=== PATIENT | female | born 1995 | race Caucasian/White ===

== ENCOUNTER 2024-11-23 14:53 | Emergency (ER) | payer BC, SELFPAY ==
[2024-11-23 14:57] VITALS: BP 136/94
[2024-11-23 15:27] VITALS: BMI 22.3
[2024-11-23 15:28] VITALS: BP 121/76
[2024-11-23 15:42] LABS: Hematocrit 41.4 % (37.0-47.0); Hemoglobin 14.4 g/dL (12.0-16.0); Mean Corp Hgb Conc. 34.8 g/dL (33.0-37.0); Mean Corpuscular Hgb 29.8 pg (27.0-31.0); Mean Corpuscular Volume 85.5 fL (81.0-99.0); Mean Platelet Volume 8.8 fL (7.4-10.4); Platelet Count 267 10^3/uL (130-400); Red Blood Cell Count 4.84 10^6/uL (4.20-5.40); White Blood Cell Count 6.2 10^3/uL (4.8-10.8)
[2024-11-23] MEDS: NSS 1000 IV (15:44)
--- NOTE | 2024-11-23 15:46 | ED.GENMED ---
History of Present Illness
General
Chief Complaint: Crisis Evaluation
Source: patient
Exam Limitations: none
Time Seen by Provider: 11/23/24 15:04
Nursing documentation reviewed up to this point in time: agreed with
History of Present Illness
History of Present Illness:
Patient with history of depression, presents to ED for medical clearance for potential inpatient psychiatric treatment, secondary to worsening depression. Patient states she longer wants to feel the way she is feeling. Of note, patient reports
decreased appetite and intermittent episode of diarrhea, nonbloody, over the past 1 week. Denies abdominal pain. Denies vomiting. Denies fever or chills. Denies coughing. Denies dizziness or weakness.
Review of Systems
Review of Systems
Allergies reviewed?: Yes
All Other Systems: ROS reviewed and negative except as documented in HPI and ROS
Constitutional: Reports no symptoms
Respiratory: Reports no symptoms; Denies cough or trouble breathing
Cardiac: Reports no symptoms
ABD/GI: Reports diarrhea; Denies abdominal pain, nausea or vomiting
Musculoskeletal: Reports no symptoms
Skin: Reports no symptoms
Neurological: Reports no symptoms; Denies dizzy or weakness
Psychiatric: Reports depression
Phy Exam
Physical Exam
Physical Exam:
Physical Exam
General: no apparent distress, not acutely ill. afebrile
Head: nc/at. eomi
Neck: supple. normal range of motion.
Heart: s1/s2 regular rate and rhythm
Lungs: no acute respiratory distress. clear bilaterally
Abdomen: normal bowel sounds. not tender.
Neuro: alert and oriented x 3. no focal neurological deficits
Skin: no rash
Psychiatric: well kept. interactive and cooperative
Extremities: no edema. no calf tenderness.
Course
Orders/Labs/Results
Orders:
Orders
11/23/24 15:05
Crisis Consult Urgent
Reason for Consult: depression
11/23/24 15:16
Test Result ONCE
11/23/24 15:29
0.9% Sodium Chloride 1000 ml [Nss] 1,000 ml IV BOLUS
11/23/24 15:35
Acetaminophen Urgent
Alcohol Urgent
Complete Blood Count/No Diff Urgent
Comprehensive Metabolic Panel Urgent
HCG, Serum Qualitative Screen Urgent
Salicylate Urgent
11/23/24 17:56
Fentanyl, Urine Urgent
Urine Drug Abuse Screen Urgent
Date Specimen was Collected: 11/23/24
Time Specimen was Collected: 17:47
Stool Culture Urgent
ANETTE Source: Feces/Stool
Specimen Description:
Date Specimen was Collected: 11/23/24
Time Specimen was Collected: 17:47
Abnormal Lab Results
11/23/24 11/23/24
15:35 17:56
Chloride 110 H mmol/L
(98-107)
Carbon Dioxide 21 L mmol/L
(22-30)
Glucose 101 H mg/dl
(70-99)
Salicylates < 1.0 L mg/dl
(2.0-20.0)
Acetaminophen < 10 L ug/ml
(10-30)
U Benzodiazepines Scrn Positive H
(Negative)
11/23/24 15:35
11/23/24 15:35
Vital Signs
Initial and Last Documented VS:
Initial Vital Signs
Temp Pulse Resp BP Pulse Ox
98.2 F 100 20 136/94 95
11/23/24 14:57 11/23/24 14:57 11/23/24 14:57 11/23/24 14:57 11/23/24 14:57
Last Documented Vital Signs
Temp Pulse Resp BP Pulse Ox
98.2 F 85 18 115/76 99
11/23/24 14:57 11/23/24 17:56 11/23/24 17:56 11/23/24 17:56 11/23/24 17:56
MDM/Problems Addressed
MDM/Problems Addressed:
Patient evaluated by [facility] child welfare social worker. Patient will be transferred to inpatient psychiatric facility for further evaluation treatment, voluntarily on 201. Medical screening workup, including blood work and urine drug screen will be
ordered.
Patient medically cleared. Patient given IV fluids. Patient will be discharged to her , who will take patient to [facility] upon discharge for inpatient treatment.
*Pulse Oximetry
SaO2: 96
Oxygen Mode of Delivery: Room air
Patient hypoxic: no
*Critical Care Note
Total Time (30-74mins, 75-104mins- exclusive of procedures): Not Applicable
ED Attending Note
-
Portions of this chart may have been created with voice recognition software.� Occasional wrong word or��sound alike� substitutions may have occurred due to the inherent limitations of voice recognition software.
Discharge Plan
Departure
Patient Disposition: Home (Routine Discharge)
Date of Disposition: 11/23/24
Time of Disposition: 15:49
Patient Status:: 201
Patient with high blood pressure during this ER visit?: Yes
Discharge Problem:
Depression
Instructions: Depression, Adult (DC)
Referrals:
Alee Nielsen MD [Family Provider, Internal Medicine]
Activity Restrictions/Additional Instructions:
As discussed, please follow-up at [facility] upon discharge for further evaluation and treatment.
Interventions
Interventions:
*Risk Screen - Suicide Last Done: 11/23/24 14:59
*General Assessment Last Done: 11/23/24 14:57
*Neglect/Abuse Screening Last Done: 11/23/24 15:39
*ED- Fall Risk Assessment Last Done: 11/23/24 15:39
*ED COVID-19 Vaccine History Last Done: 11/23/24 15:39
*Nursing Disposition Last Done: 11/23/24 18:14
ED-Psychological Assessment Last Done: 11/23/24 15:41
Discharge Date and Time
Discharge Date/Time: 11/23/24 18:16
Print Language: ITALIAN
[2024-11-23 16:02] LABS: ALT (SGPT) 18 U/L (0-35); AST (SGOT) 22 U/L (14-36); Acetaminophen < 10 ug/ml (10-30); Albumin 4.6 g/dl (3.5-5.0); Alcohol < 10 mg/dl; Alkaline Phosphatase 42 U/L (38-126); Blood Urea Nitrogen 12 mg/dl (7-17); Calcium 9.6 mg/dl (8.4-10.2); Carbon Dioxide 21 mmol/L (22-30); Chloride 110 mmol/L (98-107); Estimated Creatinine Clearance 109 ml/min; Glucose 101 mg/dl (70-99); HCG, Serum Qualitative Screen Negative; Potassium 4.1 mmol/L (3.5-5.1); Salicylate < 1.0 mg/dl (2.0-20.0); Sodium 139 mmol/L (135-145); Total Bilirubin 0.8 mg/dl (0.2-1.3); Total Protein 7.2 g/dl (6.3-8.2); eGFR > 60.00
[2024-11-23 17:56] VITALS: BP 115/76
[2024-11-23 18:21] LABS: Amphetamines Negative (Negative); Barbiturates Negative (Negative); Benzodiazepines Positive (Negative); Buprenorphine Negative (Negative); Cocaine Negative (Negative); Marijuana Negative (Negative); Methadone Negative (Negative); Methamphetamines Negative (Negative); Opiates Negative (Negative); Phencyclidine Negative (Negative); Tricyclic Antidepressants Negative (Negative)
[2024-11-23 18:48] LABS: Fentanyl, Urine Negative (Negative)
== END 2024-11-23 18:16 ==
LOC: EMR 14:53
PROVIDERS: EMERGENCY PHYSICIAN Emergency Medicine; FAMILY PHYSICIAN Internal Medicine
DX: F32.A Depression, unspecified (principal); R19.7 Diarrhea, unspecified
CPT/HCPCS: 96360; 99285; 80053; 80143; 80179; 80306; 80307; 82077; 84703; 85027; 87045; 87046; 87427